=== PATIENT | male | born 1995 | race Caucasian/White ===

== ENCOUNTER 2018-10-21 12:24 | Emergency (ER) | payer SELFPAY ==
[2018-10-21] MEDS: LIDOCAINE 1% (MPF) 5 ML VIAL INJ (12:51)
== END 2018-10-21 13:02 | disposition home or self-care (01) ==
LOC: FTE 12:24
DX: S61.512A Laceration without foreign body of left wrist, initial encounter (principal); W26.8XXA Contact with other sharp object(s), not elsewhere classified, initial encounter; Y92.89 Other specified places as the place of occurrence of the external cause
CPT/HCPCS: 12001; 99282-25